=== PATIENT | female | born 1975 | race Caucasian/White ===

== ENCOUNTER 2018-01-18 10:18 | Emergency (ER) | payer OTHER ==
[~2018-01-18] VITALS: Ht 167.6 cm; Wt 117.9 kg
[2018-01-18] MEDS ORDERED: SILV20CR14 TP (11:02)
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
[2018-01-18 11:07] VITALS: BP 137/81
== END 2018-01-18 11:08 | disposition home or self-care (01) ==
LOC: ER 10:18 → EDBD 10:18 → ER 11:08
DX: T23.252A Burn of second degree of left palm, initial encounter (principal); X17.XXXA Contact with hot engines, machinery and tools, initial encounter; Y93.89 Activity, other specified; Y92.89 Other specified places as the place of occurrence of the external cause; Y99.8 Other external cause status
CPT/HCPCS: 99283